=== PATIENT | female | born 1985 | race Caucasian/White ===

== ENCOUNTER 2018-04-13 21:50 | Emergency (ER) | payer OTHER ==
[2018-04-13] MEDS ORDERED: HYDROcodone/Acetaminophen 10/325 mg Tablet ONE (22:25)
== END 2018-04-13 22:43 | disposition home or self-care (01) ==
LOC: BURERS 21:50
DX: K08.89 Other specified disorders of teeth and supporting structures (principal); Z79.899 Other long term (current) drug therapy
CPT/HCPCS: 99282